=== PATIENT | female | born 1955 | race African-American/Black ===

== ENCOUNTER 2016-11-25 13:55 | Emergency (ER) | payer BC ==
[~2016-11-25] VITALS: Ht 157.4 cm; Wt 108.9 kg
[2016-11-25 15:32] LABS: BASO % 0.6 % (0.0-1.0); EOS # 0.1 10*3/uL (0.0-0.4); EOS % 1.6 % (1.0-4.0); HEMATOCRIT 37.2 % (37.0-47.0); HEMOGLOBIN 12.1 g/dl (12.0-16.0); LYMPH # 1.4 10*3/uL (1.3-4.4); LYMPH % 27.7 % (27.0-41.0); MEAN CELL VOLUME 85.7 fl (81.0-99.0); MEAN CORPUSCULAR HGB 27.9 pg (27.0-31.0); MEAN CORPUSCULAR HGB CONC 32.5 g/dl (33.0-37.0); MEAN PLATELET VOLUME 11.1 fl (9.6-12.3); MONO # 0.2 10*3/uL (0.1-1.0); MONO % 4.7 % (3.0-9.0); NEUT # 3.3 10*3/uL (2.3-7.9); PLATELET COUNT AUTOMATED 193 10*3/uL (130-400); RED BLOOD COUNT 4.34 10*6/uL (4.10-5.10); RED CELL DISTRI WIDTH 13.7 % (0-14.5); WHITE BLOOD COUNT 5.1 10*3/uL (4.8-10.8)
[2016-11-25 15:50] LABS: BUN 14 mg/dl (7-24); CARBON DIOXIDE 29 mmol/L (21-32); CHLORIDE 106 mmol/L (98-107); EST GLOM FILT AFRICAN AMERICAN > 60 ml/min; GLUCOSE 93 mg/dL (65-99); POTASSIUM 4.2 mmol/L (3.5-5.1); SODIUM 140 mmol/L (136-145)
[2016-11-25 15:52] LABS: TROPONIN I < 0.015 ng/ml (<0.045)
== END 2016-11-25 18:04 | disposition home or self-care (01) ==
LOC: ED 13:55
PROVIDERS: Student in an Organized Health Care Education/Training Program
DX: I10 Essential (primary) hypertension (principal); Z88.1 Allergy status to other antibiotic agents; Z79.899 Other long term (current) drug therapy

== ENCOUNTER → 2016-11-25 | Outpatient (CLI) | payer BC ==
[~2016-11-25] MED LIST: CARDIZEM CD180 MG PO; CARDIZEM CD240 M1 PO; CARDIZEM LA240 MG PO; DAYPRO600 M1 PO; HYDROCODONE BIT1 T11 PO; K-DUR20 MEQ PO; LASIX20 MG PO; LISINOPRIL20 MG PO; MOBIC15 MG PO; MOTRIN800 MG PO; TRAMADOL HCL50 MG PO
== END | disposition home or self-care (01) ==
LOC: RESCLI 01:58
DX: I16.0 Hypertensive urgency (principal); G89.29 Other chronic pain

== ENCOUNTER → 2016-11-26 | Outpatient (CLI) | payer BC | END | disposition home or self-care (01) | LOC: RESCLI 01:29 | DX: I10 Essential (primary) hypertension (principal) ==

== ENCOUNTER → 2016-12-03 | Outpatient (CLI) | payer BC | END | disposition home or self-care (01) | LOC: RESCLI 03:54 | DX: I10 Essential (primary) hypertension (principal); M17.0 Bilateral primary osteoarthritis of knee; I48.0 Paroxysmal atrial fibrillation ==

== ENCOUNTER → 2016-12-17 | Outpatient (CLI) | payer BC | END | disposition home or self-care (01) | LOC: RESCLI 09:18 | DX: I10 Essential (primary) hypertension (principal); M27.3 Alveolitis of jaws; G89.29 Other chronic pain ==

== ENCOUNTER → 2018-04-15 | Outpatient (CLI) | payer OTHER ==
[~2018-04-15] MED LIST changes: +CALCIUM CARBON200 MG PO; +HYDR25T PO; +HYDROCODONE-AC1 EAC1 PO; +VITAMIN D50000 UNIT PO; +XARE20MG PO
== END | disposition home or self-care (01) ==
LOC: RESCLI 04:13
DX: Z09 Encounter for follow-up examination after completed treatment for conditions other than malignant neoplasm (principal); I10 Essential (primary) hypertension; I48.0 Paroxysmal atrial fibrillation; E83.51 Hypocalcemia; E83.42 Hypomagnesemia; E34.9 Endocrine disorder, unspecified; M84.454A Pathological fracture, pelvis, initial encounter for fracture

== ENCOUNTER → 2018-04-20 | Outpatient (CLI) | payer OTHER | END | disposition home or self-care (01) | LOC: NM 09:37 | DX: E34.9 Endocrine disorder, unspecified (principal) ==

== ENCOUNTER → 2018-05-21 | Outpatient (CLI) | payer OTHER ==
[2018-05-21 13:22] LABS: BASO % 0.5 % (0.0-1.0); EOS # 0.1 10*3/uL (0.0-0.4); EOS % 1.8 % (1.0-4.0); HEMATOCRIT 34.6 % (37.0-47.0); HEMOGLOBIN 11.1 g/dl (12.0-16.0); LYMPH # 1.8 10*3/uL (1.3-4.4); LYMPH % 29.2 % (27.0-41.0); MEAN CELL VOLUME 85.6 fl (81.0-99.0); MEAN CORPUSCULAR HGB 27.5 pg (27.0-31.0); MEAN CORPUSCULAR HGB CONC 32.1 g/dl (33.0-37.0); MEAN PLATELET VOLUME 10.3 fl (9.6-12.3); MONO # 0.4 10*3/uL (0.1-1.0); MONO % 7.2 % (3.0-9.0); NEUT # 3.7 10*3/uL (2.3-7.9); PLATELET COUNT AUTOMATED 222 10*3/uL (130-400); RED BLOOD COUNT 4.04 10*6/uL (4.10-5.10); RED CELL DISTRI WIDTH 13.8 % (0-14.5)
[2018-05-21 13:53] LABS: ALBUMIN 3.6 gm/dl (3.1-4.5); CREATININE 1.41 mg/dL (0.55-1.02); PHOSPHOROUS 2.9 mg/dL (2.5-4.9); POTASSIUM 3.8 mmol/L (3.5-5.1); TOTAL PROTEIN 8.8 gm/dL (6.4-8.2)
[2018-05-21 14:20] LABS: PTH INTACT 372.2 pg/mL (18.5-88.0); VITAMIN D, 25-HYDROXY 38.8 ng/mL (30-100)
== END | disposition home or self-care (01) ==
LOC: LAB 02:38 → RESCLI 02:38
PROVIDERS: Internal Medicine
DX: I10 Essential (primary) hypertension (principal); E55.9 Vitamin D deficiency, unspecified; E34.9 Endocrine disorder, unspecified

== ENCOUNTER → 2018-05-29 | Outpatient (CLI) | payer OTHER | END | disposition home or self-care (01) | LOC: MAMMO 11:00 | DX: Z12.31 Encounter for screening mammogram for malignant neoplasm of breast (principal); I10 Essential (primary) hypertension ==

== ENCOUNTER → 2018-06-22 | Outpatient (CLI) | payer OTHER ==
[2018-06-22 13:03] LABS: ALBUMIN 3.5 gm/dl (3.1-4.5); CREATININE 1.19 mg/dL (0.55-1.02); POTASSIUM 4.4 mmol/L (3.5-5.1)
[2018-06-22 13:04] LABS: TOTAL PROTEIN 8.4 gm/dL (6.4-8.2)
== END | disposition home or self-care (01) ==
LOC: LAB 01:02 → ORTHO 01:02
PROVIDERS: Student in an Organized Health Care Education/Training Program
DX: S32.501D Unspecified fracture of right pubis, subsequent encounter for fracture with routine healing (principal); M16.11 Unilateral primary osteoarthritis, right hip; I10 Essential (primary) hypertension; X58.XXXD Exposure to other specified factors, subsequent encounter

== ENCOUNTER → 2018-06-23 | Outpatient (CLI) | payer OTHER | END | disposition home or self-care (01) | LOC: US 03:37 | DX: R92.8 Other abnormal and inconclusive findings on diagnostic imaging of breast (principal) ==

== ENCOUNTER → 2018-07-16 | Outpatient (CLI) | payer OTHER | END | disposition home or self-care (01) | LOC: MAMMO 12:56 | DX: R92.8 Other abnormal and inconclusive findings on diagnostic imaging of breast (principal) ==

== ENCOUNTER → 2018-07-29 | Outpatient (CLI) | payer OTHER | LOC: ORTHO 07:35 | DX: M84.454A Pathological fracture, pelvis, initial encounter for fracture (principal) ==

== ENCOUNTER → 2018-08-26 | Outpatient (CLI) | payer OTHER | END | disposition home or self-care (01) | LOC: ORTHO | DX: M17.11 Unilateral primary osteoarthritis, right knee (principal); S32.501D Unspecified fracture of right pubis, subsequent encounter for fracture with routine healing; M85.80 Other specified disorders of bone density and structure, unspecified site; X58.XXXD Exposure to other specified factors, subsequent encounter ==

== ENCOUNTER → 2018-10-21 | Outpatient (CLI) | payer SELFPAY | END | disposition home or self-care (01) | LOC: RESCLI 01:43 | DX: I48.0 Paroxysmal atrial fibrillation (principal); M85.89 Other specified disorders of bone density and structure, multiple sites; E55.9 Vitamin D deficiency, unspecified; I11.0 Hypertensive heart disease with heart failure; I50.32 Chronic diastolic (congestive) heart failure; R60.1 Generalized edema; E66.01 Morbid (severe) obesity due to excess calories; Z79.899 Other long term (current) drug therapy; Z91.041 Radiographic dye allergy status; Z88.0 Allergy status to penicillin; Z91.030 Bee allergy status ==

== ENCOUNTER → 2019-02-26 | Outpatient (CLI) | payer SELFPAY ==
[2019-02-26 16:29] LABS: BASO % 0.4 % (0.0-1.0); EOS # 0.1 10*3/uL (0.0-0.4); EOS % 0.8 % (1.0-4.0); HEMOGLOBIN 11.7 g/dl (12.0-16.0); LYMPH # 1.4 10*3/uL (1.3-4.4); LYMPH % 17.8 % (27.0-41.0); MEAN CELL VOLUME 87.5 fl (81.0-99.0); MEAN CORPUSCULAR HGB 27.7 pg (27.0-31.0); MEAN CORPUSCULAR HGB CONC 31.6 g/dl (33.0-37.0); MEAN PLATELET VOLUME 11.1 fl (9.6-12.3); MONO # 0.4 10*3/uL (0.1-1.0); MONO % 5.6 % (3.0-9.0); NEUT # 5.8 10*3/uL (2.3-7.9); NEUT % 74.9 % (47.0-73.0); PLATELET COUNT AUTOMATED 229 10*3/uL (130-400); RED BLOOD COUNT 4.23 10*6/uL (4.10-5.10); RED CELL DISTRI WIDTH 13.5 % (0-14.5); WHITE BLOOD COUNT 7.7 10*3/uL (4.8-10.8)
[2019-02-26 17:00] LABS: ALBUMIN 3.7 gm/dl (3.1-4.5); CREATININE 1.32 mg/dL (0.55-1.02); POTASSIUM 3.5 mmol/L (3.5-5.1); TOTAL PROTEIN 8.6 gm/dL (6.4-8.2)
== END | disposition home or self-care (01) ==
LOC: RESCLI 02:04
PROVIDERS: Student in an Organized Health Care Education/Training Program
DX: M85.89 Other specified disorders of bone density and structure, multiple sites (principal); E55.9 Vitamin D deficiency, unspecified; I11.0 Hypertensive heart disease with heart failure; I50.32 Chronic diastolic (congestive) heart failure; I48.0 Paroxysmal atrial fibrillation; Z79.899 Other long term (current) drug therapy

== ENCOUNTER → 2019-05-05 | Outpatient (CLI) | payer SELFPAY | END | disposition home or self-care (01) | LOC: RESCLI 02:11 | DX: E66.01 Morbid (severe) obesity due to excess calories (principal); M17.12 Unilateral primary osteoarthritis, left knee; M17.11 Unilateral primary osteoarthritis, right knee; E55.9 Vitamin D deficiency, unspecified; M85.89 Other specified disorders of bone density and structure, multiple sites; I48.0 Paroxysmal atrial fibrillation; I13.0 Hypertensive heart and chronic kidney disease with heart failure and stage 1 through stage 4 chronic kidney disease, or unspecified chronic kidney disease; I50.32 Chronic diastolic (congestive) heart failure; N18.3 Chronic kidney disease, stage 3 (moderate); Z79.899 Other long term (current) drug therapy ==